=== PATIENT | male | born 1975 | race Caucasian/White ===

== ENCOUNTER 2024-08-07 09:03 | Emergency (ER) | payer OTHER, SELFPAY ==
[2024-08-07 09:11] VITALS: BP 149/94; PULSE 83; TEMP 36.6; O2SAT 100; BMI 22.9
--- NOTE | 2024-08-07 09:16 | XRR_ITS ---
PROCEDURE INFORMATION: Exam: XR Left Shoulder Exam date and time: 08/07/2024 9:23 AM Age: 49 years old Clinical indication: Injury or trauma; Fall; Blunt trauma (contusions or hematomas); Shoulder; Left; Injury date: 2 weeks ago; Additional info: Pain TECHNIQUE: Imaging protocol: Radiologic exam of the left shoulder. Views: 2 or more views. COMPARISON: No relevant prior studies available. FINDINGS: Bones/joints: Normal. Soft tissues: Normal. XR/XR shoulder LT min 2V* [id number] IMPRESSION: No acute findings.
--- NOTE | 2024-08-07 11:18 | ED_ITS ---
HPI - Extremity Injury (Upper) General: Chief Complaint: Extremity Injury, Upper Stated Complaint: L shoulder pain Time Seen by Provider: 08/07/24 09:16 Source: patient Mode of arrival: ambulatory Limitations: no limitations History of Present Illness: Patient is a 49-year-old male who presents to ED today with a complaint of left shoulder pain that began following a fall yesterday while at work. He states he has been having right shoulder pain so when he fell he tried not to land onto the right shoulder and thus landed with his left arm outstretched. He reports hearing a pop to the left shoulder and has had pain since. States this is a Worker's Comp injury. He has not noticed any swelling to the extremity. No neck pain. No numbness, tingling, loss of sensation. MD complaint: injury to: left and shoulder Onset (ago): day(s) Other Extremity Injury: Left: shoulder Other injuries: none Handedness: right Place: work Severity: moderate Relieving factors: immobilization Exacerbating factors: movement of extremity Context: fall and direct blow Associated symptoms: Reports no associated symptoms; Denies neck pain or weakness in extremities Related Data Previous Rx's ?Medication ?Instructions ?Recorded ibuprofen 800 mg tablet 800 mg PO Q8H PRN pain #20 t abs 08/07/24 methocarbamol 500 mg tablet 1,000 mg (2 x 500 mg) PO Q 8H #30 08/07/24 tabs methylprednisolone 4 mg tablets in See Rx Instructions PO .COMPLEX 08/07/24 a dose pack (Medrol (Vasyl)) #21 ea Allergies Allergy/AdvReac Type Severity Reaction Status Date / Time No Known Allergies Allergy Verified 08/07/24 09:16 Review of Systems Card: Denies: chest pain Resp: Denies: dyspnea Musc: Reports: joint pain (L shoulder) and limited range of motion (L shoulder); Denies: neck pain, back pain, extremity pain, extremity swelling, joint swelling, joint redness or joint warmth Neuro: Denies: headache(s), numbness in extremities, weakness in extremities or sensory changes Physical Exam Const: COMMON NORMALS: no acute distress, average body habitus, no limitations, healthy appearing, alert and well nourished Chest: COMMONS NORMALS: normal inspection of the chest and normal palpation of entire chest wall Resp: COMMON NORMALS: normal respiratory effort and clear to auscultation bilaterally AUSCULTATION: clear to auscultation bilaterally Cardio: COMMON NORMALS: regular rate and regular rhythm RATE: regular rate RHYTHM: regular rhythm Back/Pelvis: COMMON NORMALS: thoracic and lumbar spine normal to inspection and no thoracic nor lumbar tenderness Extremity: COMMON NORMALS: normal to inspection, capillary refill normal and no joint enlargement GENERAL: Yes normal exam except as noted LEFT UPPER EXTREMITY: Yes shoulder joint (tenderness mainly glenohumeral/proximal humerus) Left shoulder joint: Yes inspection (normal gross inspection), Yes ROM (fairly normal passive ROM but does elicit discomfort) and Yes neurovascular exam (n ormal) Neuro: COMMON NORMALS: moves all extremities, no focal motor deficits and no sensory deficits noted SENSORIUM/ORIENTATION: Yes alert Course Vital Signs: Vital signs: Vital Signs Temperature 97.8 F 08/07/24 09:11 Pulse Rate 83 08/07/24 09:11 Blood Pressure 149/94 08/07/24 09:11 Pulse Oximetry 100 08/07/24 09:11 Oxygen Delivery Me thod Room Air 08/07/24 09:11 MDM - Extremity Injury (Upper) Medical Decision Making XRs of the left shoulder are unremarkable. Recommend he follow-up with his HR department for further instructions on Worker's Comp. Lab Data Radiology Impressions Shoulder X-Ray 08/07/24 09:16 IMPRESSION: No acute findings. All radiology interpretation(s) finalized by discharge Discharge Plan Discharge Patient Disposition: Home Clinical Impression: Injury of left shoulder Condition: Stable Prescriptions: New methocarbamol 500 mg tablet 1,000 mg PO Q8H Qty: 30 0RF ibuprofen 800 mg tablet 800 mg PO Q8H PRN (Reason: pain) Qty: 20 0RF methylprednisolone [Medrol (Vasyl)] 4 mg tablets,dose pack See Rx Instructions .ROUTE .COMPLEX Qty: 21 0RF Rx Instructions: orally per package directions Discharge Orders: Discharge ED (Routine); Ordered 08/07/24 Ordered By: Jes Castro Activity Restrictions/Additional Instructions: As we discussed, your x-rays today were unremarkable. Please speak to your Human Resource department about further instructions on following up through Worker's Comp. Print Language: French Coding Level of Care Code ED [employer]st for [employer]
[2024-08-07] MEDS: dexamethasone 10 mg/mL INJ 8 MG IM (11:38)
[2024-08-07] MEDS: orphenadrine 30 mg/mL Inj 2 mL 60 MG IM (11:38)
[2024-08-07] MEDS: ketorolac 60 mg/2 mL INJ IM (11:38)
[2024-08-07 11:44] VITALS: BP 148/90; PULSE 71; O2SAT 96
== END 2024-08-07 11:51 | disposition home or self-care (01) ==
PROVIDERS: Emergency Provider Physician Assistant
DX: S49.92XA Unspecified injury of left shoulder and upper arm, initial encounter (principal); W19.XXXA Unspecified fall, initial encounter
CPT/HCPCS: 73030; 96372; 99284; J1100; J1885; J2360

== ENCOUNTER → 2025-03-04 10:54 | Outpatient (BNVA) | payer OTHER, SELFPAY | PROVIDERS: Visit Provider Nurse Practitioner | DX: R39.9 Unspecified symptoms and signs involving the genitourinary system (principal) | CPT/HCPCS: 81000; 87086 ==